=== PATIENT | male | born 1960 | race Two or more races ===

== ENCOUNTER 2023-02-12 14:48 | Emergency (ER) | payer OTHER ==
[~2023-02-12] VITALS: Ht 167.6 cm; Wt 87.4 kg
[2023-02-12 15:02] VITALS: PULSE 62
[2023-02-12 18:40] VITALS: BP 148/85; RESP 16; TEMP 98; O2SAT 95
[2023-02-12] MEDS ORDERED: TETRACAINE HCL 0.5% OPTH(EYE) SOLN 4ML LEFTEYE ONE (19:00)
[2023-02-12] MEDS ORDERED: FLUORESCEIN SOD OPTH TEST STRIP LEFTEYE ONE (19:00)
[2023-02-12] MEDS ORDERED: ERYTHROMY OPTH OINT 5mg/gm 1gm or 3.5gm tube OP ONE (20:30)
[2023-02-12] MEDS ORDERED: ERY05OO OP (20:35)
== END 2023-02-12 21:16 | disposition left against medical advice (07) ==
LOC: ER 14:48
DX: S05.02XA Injury of conjunctiva and corneal abrasion without foreign body, left eye, initial encounter (principal); I10 Essential (primary) hypertension; Z79.899 Other long term (current) drug therapy; X58.XXXA Exposure to other specified factors, initial encounter; Y93.89 Activity, other specified; Y92.89 Other specified places as the place of occurrence of the external cause; Y99.8 Other external cause status